=== PATIENT | female | born 1980 | race Caucasian/White ===

== ENCOUNTER 2017-10-27 20:52 | Emergency (ER) | payer SELFPAY ==
[~2017-10-27] VITALS: Ht 152.4 cm; Wt 136.4 kg
[~2017-10-27 20:52] MED LIST: ACCUPRIL20TAB PO; ACCUPRIL40MGTAB; AMOXICILLIN 8751 TAB PO; CIPRO 500MG TA500 MG PO; HCTZ 25MG TAB25 MG PO; PRENATAL1 TA1 PO; ZESTRIL 10MG10 MG PO
[2017-10-27 21:01] VITALS: BP 143/78; TEMP 98.4
[2017-10-27 22:09] VITALS: PULSE 80
== END 2017-10-27 22:10 | disposition home or self-care (01) ==
LOC: COL.ER 20:52
DX: S83.92XA Sprain of unspecified site of left knee, initial encounter (principal); S83.91XA Sprain of unspecified site of right knee, initial encounter; W01.0XXA Fall on same level from slipping, tripping and stumbling without subsequent striking against object, initial encounter

== ENCOUNTER 2017-11-01 17:03 | Emergency (ER) | payer SELFPAY ==
[~2017-11-01] VITALS: Ht 157.5 cm; Wt 136.4 kg
[2017-11-01 18:00] LABS: COLLECTION METHOD CLEAN CATCH
[2017-11-01 18:05] LABS: MUCOUS Present /lpf; PH 8 (5-8); URINE APPEARANCE Clear; URINE BACTERIA Rare /hpf; URINE BILIRUBIN Negative (NEGATIVE); URINE BLOOD Negative (NEGATIVE); URINE COLOR Yellow; URINE GLUCOSE Negative (NEGATIVE); URINE KETONE Negative (NEGATIVE); URINE LEUKOCYTE ESTERASE Negative (NEGATIVE); URINE NITRATE Negative (NEGATIVE); URINE PROTEIN(semi-quant) Negative (NEGATIVE); URINE RBC 0-2 /hpf; URINE UROBILINOGEN Negative (NEGATIVE)
[2017-11-01] MEDS ORDERED: FLEXERIL 1010 MG/TAB PO (19:28)
[2017-11-01 20:00] VITALS: BP 119/68; PULSE 83; TEMP 98.2
== END 2017-11-01 20:00 | disposition home or self-care (01) ==
LOC: COL.ER 17:03
PROVIDERS: Physician Assistant
DX: M54.5 Low back pain (principal)

== ENCOUNTER 2018-06-13 12:44 | Emergency (ER) | payer SELFPAY ==
[~2018-06-13] VITALS: Ht 157.5 cm; Wt 136.4 kg
[~2018-06-13 12:44] MED LIST changes: +FLEXERIL 1010 MG/TAB PO
[2018-06-13 12:49] VITALS: BP 123/58; TEMP 98.7
[2018-06-13 14:12] LABS: COLLECTION METHOD CLEAN CATCH
[2018-06-13 14:21] LABS: BASO % 0.4 % (0.0-2.0); EOS # 0.2 (0.0-0.7); EOS % 2.4 % (0-4.0); GRAN # 4.4 (1.4-6.5); HEMATOCRIT 39.8 % (37.0-47.0); HEMOGLOBIN 13.1 g/dl (12.5-16.0); LYMPH # 2.1 (1.2-3.4); MEAN CELL VOLUME 89 fl (80.0-100.0); MEAN CORPUSCULAR HEMOGLOBIN 29 pg (27.0-31.0); MEAN CORPUSCULAR HGB CONC 33 g/dl (33.0-37.0); MEAN PLATELET VOLUME 10.7 fl (7.4-10.4); MONO # 0.4 (0.1-0.6); MONO % 4.9 % (1.7-9.3); PLATELET COUNT 274 K/mm3 (130-400); RED BLOOD COUNT 4.46 M/mm3 (4.10-5.30); REDCELL DISTRIBUTION WIDTH-CV 14.9 % (11.5-14.5)
[2018-06-13 14:24] LABS: PH 7 (5-8); SQUAMOUS EPITHELIAL 0-2 /hpf; URINE APPEARANCE Clear; URINE BACTERIA None Seen /hpf; URINE BILIRUBIN Negative (NEGATIVE); URINE BLOOD Negative (NEGATIVE); URINE COLOR Straw; URINE GLUCOSE Negative (NEGATIVE); URINE KETONE Negative (NEGATIVE); URINE LEUKOCYTE ESTERASE Negative (NEGATIVE); URINE NITRATE Negative (NEGATIVE); URINE PROTEIN(semi-quant) Negative (NEGATIVE); URINE RBC 0-2 /hpf; URINE UROBILINOGEN Negative (NEGATIVE)
[2018-06-13 14:29] LABS: BILIRUBIN,TOTAL 0.4 mg/dL (0.0-1.0); C-REACTIVE PROTEIN 2.1 mg/dL (0.0-0.9); CREATININE, serum 0.43 (0.52-1.25); POTASSIUM 3.9 mmol/L (3.4-5.0); TOTAL PROTEIN 7.5 gm/dL (6.4-8.2)
[2018-06-13] MEDS ORDERED: FLEXERIL 1010 MG/TAB PO (14:59)
[2018-06-13 15:16] VITALS: PULSE 72
== END 2018-06-13 15:16 | disposition home or self-care (01) ==
LOC: COL.ER 12:44
PROVIDERS: Physician Assistant
DX: M54.9 Dorsalgia, unspecified (principal); I10 Essential (primary) hypertension; Z98.890 Other specified postprocedural states

== ENCOUNTER 2018-07-09 09:00 | Outpatient (RCR) | payer SELFPAY | END 2018-07-09 10:57 | disposition home or self-care (01) | LOC: WSC 09:00 | DX: M54.5 Low back pain (principal); Z90.49 Acquired absence of other specified parts of digestive tract ==

== ENCOUNTER → 2018-08-21 | Outpatient (CLI) | payer SELFPAY | LOC: COL.RAD 13:15 | DX: Z53.8 Procedure and treatment not carried out for other reasons (principal) ==

== ENCOUNTER → 2018-10-01 | Outpatient (CLI) | payer SELFPAY | LOC: COL.RAD 14:00 | DX: Z53.9 Procedure and treatment not carried out, unspecified reason (principal) ==

== ENCOUNTER 2019-02-04 14:46 | Emergency (ER) | payer SELFPAY ==
[~2019-02-04] VITALS: Ht 157.5 cm; Wt 140.9 kg
[2019-02-04 14:53] VITALS: TEMP 99.1
[2019-02-04] MEDS ORDERED: PRINZIDE 25 MG-1 TAB PO (15:05)
[2019-02-04 16:09] LABS: COLLECTION METHOD CLEAN CATCH
[2019-02-04 16:15] LABS: PH 8 (5-8); SQUAMOUS EPITHELIAL 0-2 /hpf; URINE APPEARANCE Clear; URINE BACTERIA Rare /hpf; URINE BILIRUBIN Negative (NEGATIVE); URINE BLOOD Negative (NEGATIVE); URINE COLOR Straw; URINE GLUCOSE Negative (NEGATIVE); URINE KETONE Negative (NEGATIVE); URINE LEUKOCYTE ESTERASE Negative (NEGATIVE); URINE NITRATE Negative (NEGATIVE); URINE PROTEIN(semi-quant) Negative (NEGATIVE); URINE RBC 0-2 /hpf; URINE UROBILINOGEN Negative (NEGATIVE); URINE WBC 0-2 /hpf
[2019-02-04] MEDS ORDERED: FLEXERIL 1010 MG/TAB PO (16:58)
[2019-02-04 17:10] VITALS: BP 117/72; PULSE 88
== END 2019-02-04 17:10 | disposition home or self-care (01) ==
LOC: COL.ER 14:46
PROVIDERS: Emergency Medicine
DX: S13.4XXA Sprain of ligaments of cervical spine, initial encounter (principal); R40.2412 Glasgow coma scale score 13-15, at arrival to emergency department; I10 Essential (primary) hypertension; E66.9 Obesity, unspecified; Z98.890 Other specified postprocedural states; Z90.89 Acquired absence of other organs; V43.52XA Car driver injured in collision with other type car in traffic accident, initial encounter

== ENCOUNTER 2020-05-11 14:45 | Outpatient (RCR) | payer SELFPAY ==
[~2020-05-11 14:45] MED LIST changes: +PRINZIDE 25 MG-1 TAB PO
== END 2020-07-03 | disposition still patient (30) ==
LOC: WSC
DX: M54.9 Dorsalgia, unspecified (principal)

== ENCOUNTER → 2021-01-27 | Outpatient (CLI) | payer SELFPAY ==
[2021-01-27 14:43] LABS: BASO # 0.1 K/mm3 (0.0-0.2); BASO % 0.6 % (0.0-2.0); EOS # 0.2 K/mm3 (0.0-0.7); EOS % 2.4 % (0-4.0); GRAN # 5.3 K/mm3 (1.4-6.5); GRAN % 60.3 % (42.2-75.2); HEMOGLOBIN 11.8 g/dl (12.5-16.0); LYMPH # 2.6 K/mm3 (1.2-3.4); LYMPH % 29.7 % (20.0-51.0); MEAN CELL VOLUME 88 fl (80.0-100.0); MEAN CORPUSCULAR HEMOGLOBIN 29 pg (27.0-31.0); MEAN CORPUSCULAR HGB CONC 33 g/dl (33.0-37.0); MEAN PLATELET VOLUME 9.7 fl (7.4-10.4); MONO # 0.6 K/mm3 (0.1-0.6); MONO % 6.7 % (1.7-9.3); PLATELET COUNT 315 K/mm3 (130-400); RED BLOOD COUNT 4.09 M/mm3 (4.10-5.30); REDCELL DISTRIBUTION WIDTH-CV 14.8 % (11.5-14.5)
[2021-01-27 14:45] LABS: HEMATOCRIT 35.9 % (37.0-47.0)
[2021-01-27 14:55] LABS: INR 1.1 (0.8-3.0); PROTHROMBIN TIME 12.6 SECONDS (9.7-12.8)
[2021-01-27 14:59] LABS: ALBUMIN 3.6 gm/dL (3.5-5.0); BILIRUBIN,TOTAL 0.2 mg/dL (0.2-1.2); CALCIUM 8.9 mg/dL (8.4-10.2); CREATININE, serum 0.64 mg/dL (0.57-1.11); POTASSIUM 3.8 mmol/L (3.5-4.5); TOTAL PROTEIN 7.4 gm/dL (6.2-8.1)
== END ==
LOC: COL.LAB 14:20
PROVIDERS: Registered Nurse
DX: R60.0 Localized edema (principal)

== ENCOUNTER → 2021-01-30 | Outpatient (CLI) | payer SELFPAY | LOC: COL.VAS 08:41 | DX: R60.0 Localized edema (principal); M79.89 Other specified soft tissue disorders ==

== ENCOUNTER → 2021-04-28 | Outpatient (CLI) | payer SELFPAY | LOC: COL.RAD 14:25 | DX: M17.12 Unilateral primary osteoarthritis, left knee (principal) ==

== ENCOUNTER 2021-05-25 12:45 | Outpatient (RCR) | payer SELFPAY | END 2021-06-08 | LOC: MKS.ESL.PT | DX: M25.562 Pain in left knee (principal) ==

== ENCOUNTER → 2021-08-10 15:17 | Outpatient (RCR) | payer SELFPAY ==
[~2021-08-10 15:17] MED LIST changes: +ANTIVERT 25MG25 MG PO
== END | disposition home or self-care (01) ==
LOC: MKS.ESL.PT 06-12 12:45
DX: M25.562 Pain in left knee (principal)

== ENCOUNTER 2021-09-11 02:30 | Emergency (ER) | payer SELFPAY ==
[~2021-09-11] VITALS: Ht 165.1 cm; Wt 154.5 kg
[~2021-09-11 02:30] MED LIST changes: -ANTIVERT 25MG25 MG PO
[2021-09-11 02:38] VITALS: TEMP 97
[2021-09-11 03:28] LABS: BASO % 0.4 % (0.0-2.0); EOS # 0.1 K/mm3 (0.0-0.7); EOS % 1.5 % (0.0-4.0); GRAN # 6.3 K/mm3 (1.4-6.5); GRAN % 69.7 % (42.2-75.2); LYMPH # 2.1 K/mm3 (1.2-3.4); LYMPH % 22.9 % (20.0-51.0); MEAN CELL VOLUME 86 fl (80.0-100.0); MEAN CORPUSCULAR HEMOGLOBIN 28 pg (27-31); MEAN CORPUSCULAR HGB CONC 32 g/dl (33.0-37.0); MEAN PLATELET VOLUME 10.2 fl (7.4-10.4); MONO # 0.5 K/mm3 (0.1-0.6); MONO % 5.1 % (1.7-9.3); PLATELET COUNT 335 K/mm3 (130-400); REDCELL DISTRIBUTION WIDTH-CV 14.9 % (11.5-14.5)
[2021-09-11 03:48] LABS: ALBUMIN 3.5 gm/dL (3.5-5.0); BILIRUBIN,TOTAL 0.2 mg/dL (0.2-1.2); CALCIUM 8.6 mg/dL (8.4-10.2); CREATININE, serum 0.68 mg/dL (0.57-1.11); POTASSIUM 3.4 mmol/L (3.5-4.5); TOTAL PROTEIN 7.4 gm/dL (6.2-8.1)
[2021-09-11] MEDS ORDERED: ANTIVERT 25MG25 MG PO (04:32)
[2021-09-11 05:40] VITALS: BP 118/62; PULSE 67
== END 2021-09-11 05:40 | disposition home or self-care (01) ==
LOC: COL.ER 02:30
PROVIDERS: Personal Emergency Response Attendant
DX: J06.9 Acute upper respiratory infection, unspecified (principal); R42 Dizziness and giddiness; E66.01 Morbid (severe) obesity due to excess calories; Z20.822 Contact with and (suspected) exposure to COVID-19
CPT/HCPCS: J2550; J7030